=== PATIENT | female | born 1995 | race Caucasian/White ===

== ENCOUNTER 2018-03-17 12:11 | Emergency (ER) | payer MEDICAID ==
[2018-03-17 12:27] VITALS: BP 127/63
--- NOTE | 2018-03-17 14:08 | ER Document Report ---
ED Medical Screen (RME) - General Chief Complaint: Vag Bleeding, +preg <12wks Stated Complaint: VAGINAL BLEEDING Time Seen by Provider: 03/17/18 14:03 Notes: Patient thinks she may be miscarrying. She is approximately 8-10 weeks . She has had bleeding and spotting for the past 5 days. Also having some abdominal cramping. Has not had any evaluation or ultrasound during this . TRAVEL OUTSIDE OF THE [place] IN LAST 30 DAYS: No - Related Data Allergies/Adverse Reactions: latex Allergy (Verified 03/17/18 12:12) Past Medical History - Social History Chew tobacco use (# tins/day): No Frequency of alcohol use: None Drug Abuse: None Renal/ Medical History: Denies: Hx Peritoneal Dialysis Physical Exam - Vital signs Vitals: Temp Pulse Resp BP Pulse Ox 98.9 F 80 18 127/63 H 99 03/17/18 12:27 03/17/18 12:27 03/17/18 12:27 03/17/18 12:27 03/17/18 12:27 Course - Vital Signs Vital signs: Temp Pulse Resp BP Pulse Ox 98.9 F 80 18 127/63 H 99 03/17/18 12:27 03/17/18 12:27 03/17/18 12:27 03/17/18 12:27 03/17/18 12:27
[2018-03-17 14:25] LABS: ABSOLUTE EOSINOPHILS # (AUTO) 0.1 10^3/uL (0.0-0.6); ABSOLUTE MONOCYTES (AUTO) 0.6 10^3/uL (0.1-1.4); ABSOLUTE NEUT (AUTO) 4.6 10^3/uL (1.7-8.2); BASOPHILS % (AUTO) 0.6 % (0-2); EOSINOPHILS % (AUTO) 1.4 % (0-6); HEMATOCRIT 39.7 % (36.0-47.0); LYMPHOCYTES % (AUTO) 27.2 % (13-45); MEAN CORPUSCULAR HEMOGLOBIN 31.6 pg (27.0-33.4); MEAN CORPUSCULAR HGB CONC 35.3 g/dL (32.0-36.0); MEAN CORPUSCULAR VOLUME 90 fl (80-97); MONOCYTES % (AUTO) 8.6 % (3-13); PLATELET COUNT 240 10^3/uL (150-450); RED BLOOD COUNT 4.43 10^6/uL (3.72-5.28); RED CELL DISTRIBUTION WIDTH 11.7 % (11.5-14.0); SEGMENTED NEUTROPHILS % (AUTO) 62.2 % (42-78); TOTAL CELLS COUNTED % (AUTO) 100 %; WHITE BLOOD COUNT 7.4 10^3/uL (4.0-10.5)
--- NOTE | 2018-03-17 16:35 | RADIOLOGY REPORT (SQ) ---
EXAM DESCRIPTION: U/S OB TRANSVAG W/DOPPLER COMPLETED DATE/TIME: 03/17/2018 4:22 pm REASON FOR STUDY: with vaginal bleeding COMPARISON: None. TECHNIQUE: Transvaginal static and realtime grayscale images acquired of the pelvis. Additional thuan cted spectral and color Doppler images recorded. All images stored on PACs. CLINICAL AGE: 10 weeks bHC,337 LIMITATIONS: None. FINDINGS: UTERUS: No masses. No anomalies. GESTATIONAL SAC: Normal shape. YOLK SAC: No. POLE: None present. RIGHT ADNEXA: Normal ovary with normal vascular flow. No adnexal free fluid. No adnexal masses. LEFT ADNEXA: Normal ovary with normal vascular flow. No adnexal free fluid. No adnexal masses. FREE FLUID: None. OTHER: No other significant finding. IMPRESSION: POSSIBLE EARLY INTRAUTERINE . BHCG LEVEL APPROPRIATE FOR ENDOMETRIAL FINDINGS. CONSIDER F/U BHCG AND/OR ULTRASOUND FOR VERIFICATION AND TO EXCLUDE ECTOPIC . Trimester of : First - 0 to 13 weeks. TECHNICAL DOCUMENTATION: JOB ID: [id number] [employer]- All Rights Reserved Reading location - IP/workstation name: [email or web address]
--- NOTE | 2018-03-17 17:47 | ER Document Report ---
ED GI/ - General Chief Complaint: Vag Bleeding, +preg <12wks Stated Complaint: VAGINAL BLEEDING Time Seen by Provider: 03/17/18 14:03 Mode of Arrival: Ambulatory Notes: Patient is a 19-year-old female comes emergency room complaining of vaginal bleeding. She states that on March 12 she started with some brownish red blood that was more dry in nature. But states that on that day she got excessively stressed when she started. On the she noticed some bright red blood. States it has only been like 1 pad a day not quite like her full. But close. Patient is currently not seeing an ELECTRO MECHANIC. She is recently had a miscarriage back in September at 13 weeks. At that time she states she is on Medicaid and she finally found a EMPLOYMENT COACH that would accept her she missed an appointment then something else happened and by the time patient was able to set another appointment she had had a spontaneous so she never went back. When she started having spotting with this as well as the current bleeding she try to contact that person but found that they no longer deliver babies and no longer than female offices. Patient is 3 para 1 with 1 spontaneous . Last menstrual period was approximately January 08. She denies any other medical problems. TRAVEL OUTSIDE OF THE [place] IN LAST 30 DAYS: No - HPI Patient complains to provider of: , Vaginal bleeding Onset: Last week Timing/Duration: Gradual, Persistent, Worse Quality of pain: No pain Severity at maximum: Moderate Severity in ED: Mild Pain Level: 1 Menstrual period history: LMP: January 08, 2018 : 3 Para: 1 Abortions: 1 heart tones (bpm): 0 ABO type: O+ OB ultrasound done: Yes vitamins taken: Yes Sexual history: Active Exacerbated by: Denies Relieved by: Denies Similar symptoms previously: Yes Recently seen / treated by doctor: Yes - Related Data Allergies/Adverse Reactions: latex Allergy (Verified 03/17/18 12:12) Past Medical History - General Information source: Patient - Social History Smoking Status: Never Smoker Cigarette use (# per day): No Chew tobacco use (# tins/day): No Smoking Education Provided: No Frequency of alcohol use: None Drug Abuse: None Lives with: Family Family History: Reviewed & Not Pertinent Patient has suicidal ideation: No Patient has homicidal ideation: No Renal/ Medical History: Denies: Hx Peritoneal Dialysis Review of Systems - Review of Systems Constitutional: No symptoms reported EENT: No symptoms reported Cardiovascular: No symptoms reported Respiratory: No symptoms reported Gastrointestinal: No symptoms reported Genitourinary: No symptoms reported Female Genitourinary: No symptoms reported, , Vaginal bleeding Musculoskeletal: No symptoms reported Skin: No symptoms reported Hematologic/Lymphatic: No symptoms reported Neurological/Psychological: No symptoms reported -: Yes All other systems reviewed and negative Physical Exam - Vital signs Vitals: Temp Pulse Resp BP Pulse Ox 98.9 F 80 18 127/63 H 99 03/17/18 12:27 03/17/18 12:27 03/17/18 12:27 03/17/18 12:27 03/17/18 12:27 Interpretation: Normal - Notes Notes: PHYSICAL EXAMINATION: GENERAL: Patient is a well-nourished well-developed 22-year-old female who is in no apparent distress on physical exam today. He does not even appear uncomfortable during physical exam. HEAD: Atraumatic, normocephalic. EYES: Pupils equal round and reactive to light, extraocular movements intact, conjunctiva are normal. ENT: Nares patent, oropharynx clear without exudates. Moist mucous membranes. NECK: Normal range of motion, supple without lymphadenopathy LUNGS: Breath sounds clear to auscultation bilaterally and equal. No wheezes rales or rhonchi. HEART: Regular rate and rhythm without murmurs ABDOMEN: examination of patient's abdomen shows it to be normal in appearance. Does not appear to be a abdomen at present. Bowel sounds are in all 4 quads. It is nontender to palpation. Suprapubic palpation is also nontender. Female : deferred after reading patient's ultrasound and explained it to her patient refused to have the pelvic done. Musculoskeletal: Normal range of motion, no pitting or edema. No cyanosis. NEUROLOGICAL: Normal speech, normal gait. Normal sensory, motor exams PSYCH: Normal mood, normal affect. SKIN: Warm, Dry, normal turgor, no rashes or lesions noted. Course - Re-evaluation Re-evalutation: 03/18/18 01:12 After having the ultrasound report possible early intrauterine B hCG level appropriate for endometrial findings consider follow-up B hCG and/or ultrasound for verification and to exclude ectopic . This is a trimester between the first of the . After I relayed this message to the patient she informed me that about 2 weeks ago on January she went to a facility in another town that was not operated by a physician and read by physician but a nurse did the ultrasound and gave her her interpretation and told her that basically patient had a gestational sac but no yolk sac and a pole was not present. Which is basically what our x-ray is seen here today. Patient is curious as to how this can be there is been no development in that period of time. My answer to her as I do not know. She has been bleeding since the prior to that she had no history of bleeding so she should not a miscarriage at that point. The hCG levels should be well below normal as she miscarried before from then until now. So given that I have no answer patient at this point but there is still a viable per ultrasound report. Whitney frey stated that she wanted to find a EMPLOYMENT COACH but did not know who would take Medicaid. [facility] told her that not sure what insurance is they took but would be more than happy to talk to her about it and gave the number there. Mom was trying to gather this information patient left the facility without informing anyone. I also written her a prescription to follow her hCG levels for her to do it here at the hospital because she could not find anyone outside to see her and that we could also rerun an ultrasound and 3 days if we needed to. Patient did not wait for this prescription she up and left. Nurse Ivelisse was able to contact her and left her that slipped out front at the ED admission desk. And will be out there for 3 days or until patient picks it up. - Vital Signs Vital signs: Temp Pulse Resp BP Pulse Ox 98.9 F 80 18 127/63 H 99 03/17/18 12:27 03/17/18 12:27 03/17/18 12:27 03/17/18 12:27 03/17/18 12:27 - Laboratory Result Diagrams: 03/17/18 14:12 Laboratory results interpreted by me: 03/17/18 03/17/18 14:12 17:36 Beta HCG, Quant 76454.00 H Urine Ketones 80 H Urine Blood LARGE H Discharge - Discharge Clinical Impression: Threatened miscarriage, Vaginal bleeding affecting early Condition: Stable Disposition: HOME, SELF-CARE Instructions: Bleeding During Early ([facility]), Ob-Statistical Programmer [facility], ([facility]), Repeat Blood Test ([facility]), Threatened Miscarriage ([facility]) Additional Instructions: Was decreased : You are . care is best started as early in as possible. If you're unsure about continuing this , you should discuss this with your physician or with cutting room supervisor at [facility]. You should take only medications approved by your physician. Acetaminophen can safely be taken for minor pains. As a rule, medication for chronic conditions such as asthma or seizures can safely be continued. You should discuss with the physician every medicine you take. Any regular exercise program can be continued. Talk to your physician, however, before engaging in competitive or demanding sports. Alcohol, smoking, and "street drugs" are dangerous to your baby. Cocaine is especially dangerous. Don't use any illicit drugs! BLEEDING DURING EARLY : You have been evaluated for passing blood while . While we take thi s symptom very seriously, most women with your degree of bleeding will go on to have a perfectly normal baby. At this time, there is no indication that a miscarriage will occur. (A miscarriage occurs when the fetus is abnormal. There is no medicine or treatment to prevent it.) A more serious cause of bleeding is tubal (or ectopic) . An ultrasound usually can show whether the is in the uterus or in the tube. Sometimes in early , no fetus is seen. In this case, careful follow-up, including repeat blood tests and repeat ultrasound, is necessary. Do not douche or have sex for at least a week, or until OK'd by the doctor. Don't use tampons. Call the doctor or return for re-examination if there is an increase in bleeding or cramping, extreme weakness, fainting, new abdominal pain, fever, or passage of tissue. THREATENED MISCARRIAGE: You have been evaluated for a possible miscarriage. At this time, there is no indication that a miscarriage will occur. Most women with your symptoms will go on to have a perfectly normal baby. However, careful observation will be necessary. A miscarriage occurs when the fetus is abnormal. There is no medicine or treatment for it. You should rest in bed until the symptoms have resolved. Do not douche or have sex for at least a week, or until OK'd by the doctor. Call the doctor or return for re-examination if there is an increase in bleeding or cramping, or passage of tissue. RHOGAM: Rhogam is given to a woman who has Rh negative blood type when she has vaginal bleeding during her or at the time of the delivery of her baby. If a woman is Rh negative, her body will form antibodies against red blood cells from an Rh positive fetus or baby that mix with her blood during a threatened or actual miscarraige or delivery. These antibodies will remain in the woman's body forever and will attack any future Rh positive fetus preventing it from developing into a normal baby. Rhogam is given to prevent the mother's body from forming these antibodies. REPEAT BLOOD TEST: At this time, it is uncertain if you have a viable . During the first three months of , the hormone produced from the placenta will steadily rise, usually doubling in value every 2 - 3 days. In order to determine if your is viable and likely be succesful, a repeat of this blood test for the hormone is recommended in 2 - 3 days. An order for this test to be done as an outpatient is being provided. After you have this repeat test done, call your doctor or call us for the results. If the value of the test is increasing as would be expected in a normal , then your is likely to be ok. However, if the value of the test is declining, it will suggest something has happened with your and it will not likely be a successful . FOLLOW-UP CARE: If you have been referred to a physician for follow-up care, call the physicians office for an appointment as you were instructed or within the next two days. If you experience worsening or a significant change in your symptoms (very heavy bleeding with large clots of blood, passage of tissue, more severe abdominal / pelvic pain or cramping, feeling faint or severe weakness, fever, etc.), notify the physician immediately or return to the Emergency Department at any time for re-evaluation. OBSTETRIC-GYNECOLOGIC (OB-EMPLOYMENT COACH) PHYSICIANS IN [place]: [facility] [address] [place] [address] [phone] For active duty and dependents diagnosed with a threatened or miscarriage, you should follow up in the following manner: [facility] Standard patients who have a local civilian provider should follow up with that provider. Patients of the Family Practice Clinic should call your Team Nurse at 8:00 am the following morning for further instructions. If you are neither a Standard patient nor a patient of the Family Practice Clinic, you should follow up at the [facility] ([facility]). Patients already enrolled in the [facility] OB [facility], Prime patients not assigned to the Family Practice Clinic, and Active Duty patients not assigned to Family Practice Clinic should report to the [facility] Lab at 8:00 am the next morning that the [facility] is open and then you will be seen in the OB Clinic at 11:00 am. As we discussed I have written you in order to return on Wednesday in the early afternoon to have the repeat blood test done to see if we are advancing those numbers are those numbers are falling off. As I also instructed you I have been in contact with [facility] and believes that may be a good option for you to contact first thing in the morning or first thing on Wednesday. And likewise am giving you the number to the [facility] clinic they do not actually do birthing but they do follow people medically and this may be another option to use afterwards. At this time there is no treatment we can do just got a watch which going on. Should you have a patel of blood and uncontrolled amount of bleeding return to ER before then. When you come in you go to the emergency room entrance on Wednesday and hand them that slipped the get you into the lab. When that is drawn if you want to be seen please do so you can check in at that point time and we can re-do the ultrasound at that time if we need to. We want to make sure this you have follow-up and that is why I am asking you to return to the ER on that day to have the blood test drawn so we can evaluate the either improving or declining growth. Should you have any concerns or problems prior to that please return and ask questions here in the emergency room. Forms: Follow-Up Laboratory Testing Referrals: [facility] [Provider Group] - Follow up tomorrow () [facility] [NO LOCAL MD] - Follow up as needed
[2018-03-17 18:50] LABS: APPEARANCE,URINE SLIGHTLY-CLOUDY; BILIRUBIN,URINE NEGATIVE (NEGATIVE); COLOR,URINE YELLOW; GLUCOSE, URINE NEGATIVE (NEGATIVE); KETONES,URINE 80 mg/dL (NEGATIVE); LEUKOCYTE ESTERASE,URINE NEGATIVE (NEGATIVE); NITRITE,URINE NEGATIVE (NEGATIVE); PROTEIN,URINE NEGATIVE (NEGATIVE); URINE SPECIFIC GRAVITY 1.023; UROBILINOGEN,URINE NEGATIVE mg/dL (<2.0)
== END 2018-03-17 19:52 | disposition home or self-care (01) ==
LOC: ER 12:11
DX: O20.0 Threatened abortion (principal); Z3A.09 9 weeks gestation of pregnancy; Z87.59 Personal history of other complications of pregnancy, childbirth and the puerperium; Z91.040 Latex allergy status
CPT/HCPCS: 36415; 76817; 81001; 84702; 85025; 86900; 86901; 93976; 99284